=== PATIENT | female | born 1960 | race Caucasian/White ===

== ENCOUNTER 2025-09-12 14:45 | Outpatient (AMB) | payer MEDICARE, SELFPAY ==
--- NOTE | 2025-09-12 14:51 | A.OFFPC_ITS ---
Vital Signs 09/12/25 15:04 Height 5 ft 6 in Weight 254 lb 8 oz BMI 41.1 BP 110/74 Blood Pressure Location Rt brachial Position Sitting Respiration 16 Pulse 95 Pulse Source Pulse Oximeter Temp 97.1 F Temp Source Temporal Artery Scan Pulse Oximetry (%) 96 Oxygen Delivery Method Room Air Intake Visit Reasons: follow up-Adolfo pt Freelance Recruiter Required: No Accompanied by: Daughter Allergies No Known Allergies Allergy (Verified 09/12/25 15:05) Medication List - Last Reconciled 09/12/25 by Leigha Mata MD bupropion HCl XL 300 mg PO DAILY sertraline 150 mg PO DAILY Tobacco use date assessed: 09/12/25 Fall risk assessment: 2 + Falls in past year Last assessed Fall Risk: 09/12/25 Dental Screening Dental Screen Date: 09/12/25 Did you have a dental visit in the last 12 months?: Yes Did you have a dental problem in the last 6 months where you did not have access to dental care?: No Was dental information given to patient?: Patient has dentist HPI HPI Comments History of Present Illness Details The patient is a 64 year old female presenting to [facility] care and for management of multiple chronic conditions including memory loss, sleep apnea, and hearing issues. Mild Cognitive Impairment: The patient was previously diagnosed with mild cognitive impairment by neuropsychologist. Her daughter reports her forgetfulness has worsened, and the patient disagrees with the mild characterization. A prior MRI of the brain showed chronic microvascular changes but no evidence of amyloid-related changes (ARIA). Obstructive Sleep Apnea: The patient has a diagnosis of obstructive sleep apnea and was prescribed a CPAP machine, but she is non-adherent with treatment. She reports that her mouth opens during sleep, causing air to leak from the mask, which frightens her and causes her to remove it. She previously saw physicians at the [facility] but has not ordered new supplies from her [employer]. 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 Hickey, an ENT specialist. A comparison of her most recent MRI to the previous one showed no growth per ENT. The recommended follow-up is a repeat MRI in January of 2027 per ENT. Hearing Loss and Dysequilibrium: The patient has profound hearing loss in her left ear, described as pretty much gone. She also reports experiencing frequent falls and balance problems. She has a scheduled appointment with audiology to be fitted for hearing aids. Depression: The patient's PHQ-9 score is 7, indicating mild depression. She has not previously connected with a therapist, which was partly due to prior insurance issues after leaving her job. She reports taking sertraline 150mg daily and wellbutrin. Weight Management: The patient has a history of a Lap-Band procedure for weight management and expressed interest in a weight management consultation. She has a gym membership but has not been attending recently. [facility] Medical History (Updated 09/12/25 @ 15:55 by Leigha Mata MD) Morbid obesity Memory changes H/O Mohs micrographic surgery for skin cancer CHELA (obstructive sleep apnea) Colon polyp Depression with anxiety Mild cognitive impairment Subclinical hypothyroidism Surgical History (Updated 09/12/25 @ 14:21 by Leigha Mata MD) History of lobectomy of thyroid LAP-BAND surgery status History of colonoscopy (~03/23/19) Family History (Updated 09/12/25 @ 15:07 by Tete Welch CMA) Other Diabetes mellitus Primary hypertension Social History Housing: House Patient Tobacco Use Status: Never used Tobacco e-Cigarette/Vaping Use: Never Used Current occupational status: retired Questionnaire PHQ-9 Over the last 2 weeks, how often have you been bothered by any of the following problems? 1. Little interest or pleasure in doing things: several days 2. Feeling down, depressed, or hopeless: several days 3. Trouble falling or staying asleep, or sleeping too much: several days 4. Feeling tired or having little energy: several days 5. Poor appetite or overeating: not at all 6. Feeling bad about yourself - or that you are a failure or have let yourself or your family down: several days 7. Trouble concentrating on things, such as reading the newspaper or watching television: several days 8. Moving or speaking so slowly that other people could have noticed. Or the opposite - being so fidgety or restless that you have been moving around a lot more than usual: several days 9. Thoughts that you would be better off or of hurting yourself in some way: not at all Total score: 7 Depression Screening Interpretation: Positive Depression Screening Follow-up: Existing condition and In treatment Depression Screening Done: Yes 37662 - PHQ-9 Billing: Yes Source: Developed by Drs. Vijay Frausto, Meli Negrete, Gamaliel Marion and colleagues, with an educational theresa from [employer]. AUDIT C Alcohol Use Questionnaire (AUDIT-C) 1. How often do you have a drink containing alcohol?: Never 3. How often do you have six or more drinks on one occasion?: Never Total Score: 0 Review of Systems Narrative Review of Systems - ENT: Reports profound hearing loss in the left ear. - Musculoskeletal/Neurological: Reports poor balance and history of falls. - Psychiatric: Reports symptoms of depression. - Neurological: per hpi Physical exam (Primary Care) Vital Signs: Last Vital Signs Temp 97.1 F 09/12/25 15:04 Pulse 95 09/12/25 15:04 Resp 16 09/12/25 15:04 BP 110/74 09/12/25 15:04 Pulse Ox 96 09/12/25 15:04 Oxygen Delivery Method Room Air 09/12/25 15:04 BMI result Body Mass Index 41.1 Tobacco/Smoking Status: Tobacco use Status Tobacco use date assessed 09/12/25 09/12/25 14:53 Patient Tobacco Use Status Never used Tobacco 09/12/25 15:09 e-Cigarette/Vaping Use Never Used 09/12/25 15:09 PHQ-9: PHQ-9 Score PHQ-9: Total score 7 09/12/25 15:44 Depression Screening Interpretation: Positive Depression Screening Follow-up: Existing condition and In treatment Narrative Physical Exam - HEENT: External auditory canals and oropharynx are clear. -Cardiovascular: Regular rhythm with a soft murmur. Carotids are clear bilaterally. - Respiratory: Lungs are clear to auscultation bilaterally. Coding Level of Care Code Est Pt Level 5 (18512) Add On Problem Visit Only Diagnoses Mild cognitive impairment G31.84 CHELA (obstructive sleep apnea) G47.33 Depression with anxiety F41.8 Additional Codes PHQ-9 - 38494 - PHQ-9 Billing: Yes ([id number]) Time Spent (min) 44 Comment chart review, document prep, visit time, care coordination, ordering tests Assessment & Plan Assessment & Plan (1) Mild cognitive impairment: Code(s): G31.84 - Mild cognitive impairment of uncertain or unknown etiology Category: Medical (2) CHELA (obstructive sleep apnea): Code(s): G47.33 - Obstructive sleep apnea (adult) (pediatric) Category: Medical (3) Depression with anxiety: Code(s): F41.8 - Other specified anxiety disorders Category: Medical Plan Assessment and Plan 1. Mild Cognitive Impairment - The patient reports increased forgetfulness, which is more significant than her prior diagnosis of 'mild' cognitive impairment suggests. - A referral will be placed to neurology for a comprehensive evaluation.. - The plan includes optimizing management of potential confounding factors such as sleep apnea and hearing loss. 2. Obstructive Sleep Apnea - The patient is non-adherent with CPAP therapy due to mask intolerance. - She has been instructed to contact her DME provider, [employer], to obtain a full face mask. - She will verify her follow-up status with the [facility]; if there is no upcoming appointment or a long wait, a referral will be made to our in- house sleep clinic. - The importance of CPAP for brain oxygenation was emphasized. 3. Left Acoustic Neuroma and Hearing Loss - The 9 mm neuroma is stable per her ENT's last review, with surveillance MRI scheduled for 2026. - She will proceed with her scheduled audiology appointment for hearing aid evaluation. 4. Depression - With a PHQ-9 of 7, referrals will be sent to our navigation team to arrange appointments with psychiatry and therapy services covered by her insurance. - She was counseled on medication adherence 5. Obesity and Weight Management - A referral will be placed for a weight management consultation as requested by the patient. - It was clarified that this would be informational at this stage, and she would not be a candidate for bariatric surgery until other medical issues are better controlled. 6. Health Maintenance - Lab orders were placed to check thyroid function and vitamin levels, including B12. - The patient was encouraged to use a pill organizer to improve medication adherence. - refer for colonoscopy, history of polyp Plan - Refer to Neurology for evaluation of cognitive decline. - Refer to the navigation team to establish care with in-network Psychiatry and Therapy. - Patient to contact [facility] (DME supplier) to request a full face mask for CPAP machine to improve adherence. - Ordered labs including thyroid studies and vitamin levels. - Refer to GI for colonoscopy Patient Instructions - We are referring you to a neurologist for your memory concerns. - We are also sending referrals for you to see a psychiatrist and a therapist. - Please call your medical equipment company, [employer], and tell them you need a full face mask for your CPAP machine. - Find out if you have another appointment scheduled at the [facility] and send us a message through the patient portal to let us know. - Make sure to go to your already scheduled appointment to get fitted for hearing aids. - We will send a referral for a weight management consultation so you can get more information. - Please go to the lab to have your blood drawn. Orders: Orders Vitamin B12 Today E03.8 - Other specified hypothyroidism, G31.84 - Mild cognitive impairment of uncertain or unknown etiology Complete Blood Count Auto Diff Today E03.8 - Other specified hypothyroidism, G31.84 - Mild cognitive impairment of uncertain or unknown etiology Comprehensive Met. Panel Today E03.8 - Other specified hypothyroidism, G31.84 - Mild cognitive impairment of uncertain or unknown etiology TSH reflex Free T4 Today E03.8 - Other specified hypothyroidism, G31.84 - Mild cognitive impairment of uncertain or unknown etiology Vitamin D 25-OH Total Today E03.8 - Other specified hypothyroidism, G31.84 - Mild cognitive impairment of uncertain or unknown etiology LDL Cholesterol Direct Today E03.8 - Other specified hypothyroidism, G31.84 - Mild cognitive impairment of uncertain or unknown etiology Referrals Bariatric Surgery Referral E66.01 - Morbid (severe) obesity due to excess calories Neurology Referral G31.84 - Mild cognitive impairment of uncertain or unknown etiology, R41.3 - Other amnesia Gastroenterology Referral K63.5 - Polyp of colon Medications: New bupropion HCl XL 300 mg PO DAILY 90 tabs 3RF sertraline 150 mg (1.5 x 100 mg) PO DAILY 90 tabs 3RF
[2025-09-12 15:04] VITALS: BP 110/74; PULSE 95; RESP 16; TEMP 36.2; O2SAT 96; BMI 41.1
--- OUTSIDE RECORDS SUMMARY | 2025-09-12 19:41 | XMS_ITS | Patient Health Record ---
[facility] Address [address] [place] [address] Care Team Providers Care Blade Worker Name Role Phone AdolfoLeigha alegria Primary Care Provider Unavaila Hardeep Regalado Unavailable [phone] Reason For Referral No Information Social History Tobacco use other than smoking: Question Answer Notes Are you an other tobacco user? 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) Flat Foot, Congenital (754.61) Active confirmed Problem Pain in limb (98485553) Pain in Limb (729.5) Active confirmed Problem Calcaneal spur (86182115) Calcaneal spur (726.73) Active confirmed Problem Ingrowing nail (107714902) Ingrowing Nail (703.0) Active confirmed Plan Of Treatment No Information Insurance Providers Payer Name Payer Address Payer Phone Subscriber Number Group Number Insured Name Patient Relationship to Insured Coverage Start Date Coverage End Date [facility] [employer] [address] [place] [address] [id number] Sabine Freed Self - patient is the insured Medical (General) History Surgical History Surgery Date(Month/Year) lap band 2010 knee surgery, left 2010
--- OUTSIDE RECORDS SUMMARY | 2025-09-12 19:41 | XMS_ITS | Continuity of Care Document ---
Author Organization [place] - [facility], [facility] Address [address] [place] [address] Care Team Providers Care Nutrition Aides Teacher Name Role Phone RUSTY NOLAND Primary Care Provider Assessment Encounter Date Assessment Date Assessment LastModified by Organization Details LastModified Time 09/04/2025 09/04/2025 Assessment: - 9 mm acoustic neuroma, left side, stable in size over a year and a half of observation - Hearing loss bilaterally, left greater than right secondary to acoustic neuroma. - Occasional falls and unsteadiness. Plan: Today I spoke with the patient and her daughter at length. The left-sided acoustic neuroma is stable and benign, with no evidence of growth between April 2023 and January 2025. Observation is recommended, with a follow-up MRI scheduled for January 2027 to monitor for any changes. The patient is advised to answer calls from the imaging center to ensure timely scheduling. Regarding hearing loss, BiCross amplification technology is recommended. A hearing aid evaluation will be scheduled with an forestry foreman to discuss options, including a hearing aid for the right ear and a microphone/transm itter for the left ear to improve overall hearing functionality. For balance issues, the patient will be referred to [facility] for vestibular rehabilitation therapy. This therapy will include exercises to strengthen muscles, improve coordination, and enhance balance. The patient is encouraged to follow through with the referral and consider ongoing balance exercises or classes to maintain improvement. The patient was reassured that the acoustic neuroma is benign and slow-growing, with no immediate need for surgical intervention or radiation therapy. She was counseled on the importance of observation and maintaining regular follow-ups. Not available 09/04/2025 12:47:46 Plan of Treatment Reminders Order Date Submit Date Provider Last Modified By Organization Details Last Modified Time Details Appointments HUNTER Initial Fitting 2025 01:00P M COY TRIPATHI Not available Not available Not available Lab None recorded. Referral None recorded. Procedures None recorded. Surgeries None recorded. Imaging MRI, brain + internal auditory canal, w/wo contrast - MRI, BRAIN + INTERNAL AUDITORY CANAL, W/WO CONTRAST 2024 05/03/2 027 [email or web address] [facility] ([facility] [address], [place], [address], 09/04/2025 12:26:20 Medication Orders None recorded. Patient TargetsNo targets recorded. Patient Instructions Encounter Date Encounter Id Patient Instructions Last Modified By Organization Details Last Modified Time 09/04/2025 [id number] - Follow up with MRI in January 2027. - Answer calls from the imaging center to schedule the MRI. - Attend hearing aid evaluation with forestry foreman to discuss BiCross amplification technology. - Follow through with vestibular rehabilitation therapy referral and perform recommended exercises to improve balance. - Maintain regular follow-ups for observation of the acoustic neuroma. [email or web address] Not available 09/04/2025 12:18:31 Please note: Par ts of this encounter note have been generated by AI based on audio conversation. Patient consent was required prior to utilizing this technology. Content review was required prior to finalizing the note. [email or web address] Not available 09/04/2025 12:18:32 Reason for Referral None Reported. Results Created Date Observation Date Name Description Value Unit Range Abnormal Flag Note LastModifiedBy Organization Detail LastModifiedTime 09/04/20 25 audio gram No observ ation record ed. BARCODE Not Available 2024 13:12:27 Result Notes None recorded. Problems Name Problem SNOMED Code Status Onset Date Resolution Date Notes Provider Name and Address Organization Details Recorded Time Sensorine ural hearing loss of bilateral ears 028663293 Active 2022 Sensorine ural hearing loss, bilateral ; Note: Date Diagnosed : 03/09/2023 11:09 AM (H90.3) Not Available [employer] 02:55:45 Sensorine ural hearing loss of bilateral ears 666255234 Active 2024 STEFANY BORRERO MA, CCC-A [address], [place], [address] , [facility] - [facility] 09:22:47 Bilateral tinnitus 19574047869 02 Active 2024 KEYLA DILLON PA-C [address], [place], [address] , [facility] - [facility] 09:57:25 Benign neoplasm of cranial nerve 86592570 Active 2024 KEYLA DILLON PA-C [address], [place], [address] , [facility] - [facility] 12:28:37 General unsteadin ess 575969257 Active 2024 ELIER HENDRICKS MD [address] [place],[facility] [address], [place], [address] , [facility] - [facility] 12:12:59 Problem Notes None recorded. Procedures Surgical History Date Name Laterality Status Provider Name and Address Organization Details Recorded Time 02/23/2025 Comp Audio with Tymps - 99616 & 30393 completed STEFANY BORRERO MA, [facility] [address], [place], [address], [facility] - [facility] 02/23/2025 09:22:56 Imaging Results None recorded. Procedure Notes None recorded. Medical Equipment None Reported. Medications Name Sig Start Date Stop Date Status Note LastModified by Organization Details LastModified Time meloxicam 15 mg tablet 09/04 completed Medicati on ID: [id number] B rand Name: hamidaa obed Send Method: E-Prescr ibed Sub s Allowed: subs OK Medic ationGen ericName : meloxica m Not Available Not Available Not Available sertralin e 100 mg tablet TAKE 1 AND 1/2 TABLETS BY MOUTH DAILY active Not Available Not Available No t Available sertralin e 50 mg tablet TAKE 1 TABLET BY MOUTH DAILY 09/04 completed Not Available Not Available Not Available bupropion HCl XL 300 mg 24 hr tablet, extended release TAKE 1 TABLET BY MOUTH DAILY active Not Available Not Available No t Available bupropion HCl XL 150 mg 24 hr tablet, extended release 09/04 completed Medicati on ID: [id number] B rand Name: bupropio n HCl Send Method: E-Prescr ibed Sub s Allowed: subs OK Medic mary annGen ericName : bupropio n HCl Not Available Not Available Not Available Vitals Date Recorded Body height Body mass index (BMI) Body weight Provider Name and Address Organization Details Last Updated DateTime 09/04/2025 167.64 cm 40.4 kg/m2 573599.09 g Samaria Spicer [place] - [facility] 09/04/2025 11:36:54 Social History Question Answer Notes LastModified by Organizat ion Details LastModified Time Tobacco Smoking Status Never Smoker Samaria rodriguez [place] - [facility] 09/04/2025 11:37:08 What Type Of Glass Sander Belt Do You Use? None Information not available 09/04/2025 Do You Have Any Pets? Yes Information not available 09/04/2025 Are You Passively Exposed To Smoke? No Information not available 09/04/2025 Are There Any Smokers In Your House? No Information not available 09/04/2025 Sex: Unknown Functional Status Question Answer Note LastModified by Organization Details LastModified Time Do you use any illicit or recreational drugs? No Information not available 09/04/2025 Do you or have you ever used any other forms of tobacco or nicotine? No Information not available 09/04/2025 What is your level of alcohol consumption? None Information not available 09/04/2025 What type of noise exposure are you exposed to? noExposureToExcessiveNoise Infor mation not available 09/04/2025 Mental Status None recorded. Family History Nothing Reported. Medical History Condition Response Allergies/Hayfever N Heart Problems N Anxiety Y Tonsil Infections N Emphysema N Migraines N Thyroid Problems N Depression Y COPD N Developmental Delay N Glaucoma N Nasal or Sinus Problems N Anemia N Immune System Disorder N Anesthesia Complications N Heart Attack ([place]) N Other Skin Condition N Diabetes N Rhinitis N Bleeding Disorder N Food Allergy N Hearing Loss Y Arthritis Y Hyperlipidemia N Cancer N Stroke N Dementia N Nasal polyps N Asthma N Sleep Disorder Y High Cholesterol N GERD/Reflux N Liver Disease N Headaches N Fibromyalgia N Hypertension N Speech Delay N Kidney Disease N Gynecological HistoryNo gynecological history recorded. Obstetrics History GPAL:G 0 P 0 0 0 0 Past Encounters Encounter ID Performer Location Encounter Start Date Encounter Closed Date Diagnosis/Indication Diagnosis SNOMED-CT Code Diagnosis ICD10 Code Diagnosis IMO Codes Diagnosis Note [id number] ELIER HENDRICKS MD [facility] [address] [address] 09/04/2025 11:25:35 09/04/2025 12:26:19 Benign neoplasm of cranial nerve 99227084 D33.3 506588 Sensorineu ral hearing loss of bilateral ears 131677637 H90.3 74702027 Bilateral tinnitus 69748 04899 102 H93.13 539196 General unsteadiness 271 403302 R26.81 [id number] Health Concerns Section Related Observation LastModified by Organization Detai ls LastModified Time None Recorded Concern Status LastModified by Organization Details LastModified Time None Recorded Payers Encounter Date Sequence Insurance Name Policy Number Policy Perea Covered Member ID Perea Member ID Guarantor Name 09/04/[address] [place] [address] [id number] Sabine Greenberg [id number] Sabine Greenberg Notes Date Note Type Note Provider Name and Address Organization Details Recorded Time 09/04/2025 text/html 64-year-old female with memory loss and left-sided acoustic neuroma, originally diagnosed by Dr. Colon back in April 2023. This measured 8 x 5 x 4 mm. 6-month MRI scan was recommended but not carried out. MRI was ordered, but patient did not respond to scheduling communications from [facility]. She ended up getting a follow-up MRI scan on 02/07/2025 which showed the tumor measuring 9 mm in greatest dimension, likely overall unchanged based on slight differences in slice selection. Most recent audiogram on 02/23/2025 showed mild to moderate sensorineural hearing loss in the right ear and moderate to severe sensorineural hearing loss in the left ear. Amplification recommended, likely BiCROS technology. She has not yet pursued this. Patient also notes occasional unsteadiness on her feet. She has fallen several times. Her daughter attributes this to her trying to carry too much or do too many activities and wants. Patient does not have sensation of vertigo. She comes in today accompanied by her daughter. ELIER HENDRICKS MD [address] [place] [address], [address], [facility] - [facility] 09/04/2025 12:48:05 OBGyn Episode No OBEpisode recorded.
--- OUTSIDE RECORDS SUMMARY | 2025-09-12 19:41 | XMS_ITS | Data Portability ---
Author Organization [facility], [facility] Address [address] [place] [address] Care Team Providers Care Brass Wind Instrument Maker Name Role Phone RUSTY NOLAND Primary Care Provider Assessment No assessment recorded. Plan of Treatment Reminders Order Date Submit Date Provider Last Modified By Organization Details Last Modified Time Details Appointments None recorde d. Lab None recorde d. Referral None recorde d. Procedures None recorde d. Surgeries None recorde d. Imaging XR, knee, 4 or more view - rm 113 4v hood knees 025 01/17/20 [email or web address] [facility], [address] [facility] [address], [place], [address], 08:33:47 Medication Orders None recorde d. Patient TargetsNo targets recorded. Patient InstructionsNo instructions recorded. Reason for Referral None Reported. Results Created Date Observation Date Name Description Value Unit Range Abnormal Flag Note LastModifiedBy Organization Detail LastModifiedTime 01/17/2001/16/2025 XR, knee, 4 or more view http:/ [email or web address] ?Encry pted=s hAaTro YD8dLq bEUv6g %2BXZw aYqtaq 0bqfl% 2Fg9IQ a4ajBk vP9nXo QUaueC m3YtLR FvZlgJ JJ8mAn HZtai3 1z8879 AC0Kla n2BUaK uKiQtr MwF INTERFACE [facility] [address], [place], [address], 01/16/2025 15:46:01 01/17/20 25 01/16/2025 XR, knee, 4 or more view http:/ [email or web address] ?Encry pted=s hAVitoro YD8dLq bEUv6g %2BXZw aYqtaq 0bqfl% 2Fg9IQ a4ajBk vP9nXo QUaueC m3YtLR FvZlgJ JJ8mAn HZtai3 4r0034 AC0Kla n2BUaK uKiQtr MwF INTERFACE [facility] Office [address] [facility] [address], [place], [address], 01/16/2025 15:46:03 Result Notes Documentation Provider Name and Address Organization Details Recorded Time Xr, Knee, 4 Or More View : [email or web address] Encrypted=mbPtUjaBN6xGsmW Uv6g%0MGIdwOywme6wmca%2Fg 4CIi7dqFzkO5iQxVBtycGy8Kr ELEnRixLUE6gQkSNxly79b066 1IL0Ytto0ZWkIqJfQcoMbN Not Available [facility] 01/16/2025 15:46: 02 Xr, Knee, 4 Or More View : [email or web address] Encrypted=mtUgZfiRG7fDxwI Uv6g%4KHZblKqeux5rbfh%2Fg 8NCy1wxPabN5fGlSCarnRu3Zh EAIyWrwBXD7wCkAXinq02p504 3RY4Zfph3HMeMlQkZgbMtC Not Available [facility] 01/16/2025 15:46: 03 Problems Name Problem SNOMED Code Status Onset Date Resolution Date Notes Provider Name and Address Organization Details Recorded Time Left Achilles tendiniti s 056084134300 102 Active 2017 Problem Code: M76.62; Problem Code Type: ICD-10; Status: 'A'; Not Available [facility] 11:43:41 Problem Notes None recorded. Procedures Surgical History Date Name Laterality Status Provider Name and Address Organization Details Recorded Time Knee Kenalog 40 1cc Injection, Bilateral completed Sanjay Vides PA-C [address], [place], [address], [facility] 01/16/2025 16:35:19 Imaging Results None recorded. Procedure Notes None recorded. Medical Equipment None Reported. Allergies No known drug allergies Medications Name Sig Start Date Stop Date Status Note LastModified by Organization Details LastModified Time sertraline 100 mg tablet TAKE 1 TABLET BY MOUTH DAILY active Not Available Not Available No t Available sertraline 50 mg tablet TAKE 1 TABLET BY MOUTH DAILY active Not Available Not Available No t Available bupropion HCl XL 300 mg 24 hr tablet, extended release TAKE 1 TABLET BY MOUTH DAILY active Not Available Not Available No t Available oxycodone HCl-oxycodon e-ASA 1 every 4 - 6 hours as needed 01/16 completed Statu s: 'Curr ent'; Not Available Not Available Not Available Vitals Date Recorded Body height Body mass index (BMI) Body weight Provider Name and Address Organization Details Last Updated DateTime 01/16/2025 167.64 cm 29.9 kg/m2 34123.59 g Geronimozuhair Lei [facility] 01/16/2025 15:32:27 Social History None recorded. Functional Status None recorded. Mental Status None recorded. Family History Nothing Reported. Medical History No medical history recorded. Gynecological HistoryNo gynecological history recorded. Obstetrics History GPAL:G 0 P 0 0 0 0 Past Encounters Encounter ID Performer Location Encounter Start Date Encounter Closed Date Diagnosis/Indication Diagnosis SNOMED-CT Code Diagnosis ICD10 Code Diagnosis IMO Codes Diagnosis Note [id number] JULIAN[facility] [address] [address] 01/16/2025 15:17:25 01/29/2025 09:13:01 Primary gonarthrosis, bilateral 757205872 M17.0 [id number] Health Concerns Section Related Observation LastModified by Organization Detai ls LastModified Time None Recorded Concern Status LastModified by Organization Details LastModified Time None Recorded Advance Directives Directive None Recorded Payers Insurance Date Sequence Insurance Name Policy Number Policy Perea Covered Member ID Perea Member ID Guarantor Name 01/29/2025 1 [employer] MED[employer]AGE PLAN (MEDICARE REPLACEMENT HMO) [id number] Sabine Greenberg [id number] Sabine Greenberg Notes Date Note Type Note Provider Name and Address Organization Details Recorded Time 01/16/2025 text/html ROS as noted in the HPI I am seeing the patient today under the supervision of Dr. Foster who was available but who did not see the patient. HPI:Patient is a 64-year-old female who presents to the office today with complaint of bilateral knee pain. States that she has had bilateral knee pain for the last 2 months without any specific inciting events or injuries. She was previously seen in our office about 4 years ago and was diagnosed with bilateral knee osteoarthritis. At that time she received bilateral knee injections which seem to have worked extremely well for her. She does utilize Advil as needed for pain relief. Also utilizes topical Voltaren gel. More pain in the right knee than the left. Increased pain with ambulatory activities. Past family, medical, social history and review of systems has been reviewed, updated and is located in the patient s chart. Examination: Well-appearing 64-year-old female in no acute distress. She is alert and oriented x 3. Ambulates with a symmetric gait. Bilateral knees reveal no erythema, warmth, ecchymosis, swelling. Right knee has tenderness palpation over the lateral joint line. The left knee has tenderness over the medial joint line. Range of motion of the knee is from 0-120 degrees. Knees are fairly stable to valgus and varus stress testing. Knee strength 5/5 against resistance with flexion and extension. Negative Abe test bilaterally. Negative Margaret's maneuver bilaterally. Calves are soft and nontender. 4 views of the bilateral knees obtained and independently reviewed in the office today. Right knee has joint space narrowing of the lateral joint compartment with evidence of subchondral sclerosis and osteophyte formation. Severe degenerative changes of the patellofemoral joint. Left knee has medial joint space narrowing with uszq-dk-kukr articulation, subchondral sclerosis as well as osteophyte formation. Severe degenerative changes noted of the patellofemoral joint. No fracture bilaterally. Impression:Bi-latera l Knee osteoarthritis Plan:We discussed the role of conservative management including medications, physical therapy, injection and bracing. At this point the patient was to proceed with injection. Please see procedure note. She will continue with activity modification as needed. Will continue with oral medications for pain relief. Follow-up as needed. All patient questions and concerns answered today. Sanjay Vides PA-C [address], [place], [address], [facility] [place] 01/16/2025 16:35:34 OBGyn Episode No OBEpisode recorded.
--- OUTSIDE RECORDS SUMMARY | 2025-09-12 19:41 | XMS_ITS | Data Portability ---
Author Organization [place] [facility], [facility] Address [address] [place] [address] Care Team Providers Care Cloth Bin Packer Name Role Phone RUSTY NOLAND Primary Care Provider Assessment Encounter Date Assessment Date Assessment LastModified by Organization Details LastModified Time 02/23/2025 02/23/2025 64-year-old female with memory loss and left-sided CPA retrocochlear pathology presents with daughter for reevaluation of hearing. She reports gradually worsening left-sided hearing loss. Tinnitus is stable. No vertigo. TMs and EACs are normal to inspection. Audiometric testing demonstrates neurosensory hearing loss with excellent word recognition in the right ear. Left ear with mild sloping to profound neurosensory loss with poor word recognition, at 24%. Tympanometry is normal. Patient is medically cleared for amplification, and may benefit from BiCROS technology. Recommend evaluation with Dr. Hendricks in 6 months. 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 01/2025: MRI of the IACs showed 9 x 5 x 5 mm enhancing mass within the left internal auditory canal. This is probably similar to prior study given slight differences in slice selection. [email or web address] Not available 02/23/2025 12:27:10 09/04/2025 09/04/2025 Assessment: - 9 mm acoustic [...] aid evaluation will be scheduled with an supervisor wall mirror department to discuss options, including a hearing aid for the right ear and a microphone/transm itter for the left ear to improve overall hearing functionality. For balance issues, the patient will be referred to [facility] for vestibular rehabilitation therapy. This therapy [...] importance of observation and maintaining regular follow-ups. [email or web address] Not available 09/04/2025 12:47:46 Plan of Treatment Reminders Order Date Submit Date Provider Last Modified By Organization Details Last Modified Time Details Appointments HUNTER Initial Fitting 2025 01:00P COY BOWENS Not available Not available Not available Lab None recorded. Referral None recorded. Procedures None recorded. Surgeries None recorded. Imaging MRI, brain + internal auditory canal, w/wo contrast - MRI, BRAIN + INTERNAL AUDITORY CANAL, W/WO CONTRAST 2024 0503/ 027 [email or web address] 18 [facility] ([facility] [address] [place], [address], 09/04/2025 12:26:20 Medication Orders None recorded. Patient TargetsNo targets recorded. Patient Instructions Encounter Date Encounter Id Patient Instructions Last Modified By Organization Details Last Modified Time 09/04/2025 [id number] - Follow up with MRI in January 2027. - Answer calls from the imaging center to schedule the MRI. - Attend hearing aid evaluation with supervisor wall mirror department to discuss BiCross amplification technology. - Follow through with vestibular rehabilitation therapy referral and perform recommended exercises to improve balance. - Maintain regular follow-ups for observation of the acoustic neuroma. [email or web address] Not available 09/04/2025 12:18:31 Please note: Par ts of this encounter note have been generated by AI based on audio conversation. Patient consent was required prior to utilizing this technology. Content review was required prior to finalizing the note. [email or web address] Not available 09/04/2025 12:18:32 Reason for Referral None Reported. Results Created Date Observation Date Name Description Value Unit Range Abnormal Flag Note LastModifiedBy Organization Detail LastModifiedTime 02/24/2002/07/2025 MRI, brain + inter nal audit ory canal , w/wo contr ast No observ ation record ed. [email or web address] Not Available 01/27 10:53:13 02/24/20 audio gram No observ ation record ed. BARCODE Not Available 2024 13:34:46 09/04/20 audio gram No observ ation record ed. BARCODE Not Available 2024 13:12:27 Result Notes None recorded. Problems Name Problem SNOMED Code Status Onset Date Resolution Date Notes Provider Name and Address Organization Details Recorded Time Sensorine ural hearing loss of bilateral ears 731486794 Active 2022 Sensorine ural hearing loss, bilateral ; Note: Date Diagnosed : 03/09/2023 11:09 AM (H90.3) Not Available [facility] 4 02:55:45 Sensorine ural hearing loss of bilateral ears 104728926 Active 2024 STEFANY BORRERO MA, CCC-A [address] [facility] [address], [place], [address] , [place] - [facility] 5 09:22:47 Bilateral tinnitus 33595021403 02 Active 2024 KEYLA DILLON PA-C [address] [facility] [address], [place], [address] , [facility] - [facility] [place] 5 09:57:25 Benign neoplasm of cranial nerve 88246561 Active 2024 KEYLA DILLON PA-C [address] [facility], [place], [address] , [facility] - [facility] [place] 5 12:28:37 General unsteadin ess 090323175 Active 2024 ELIER HENDRICKS MD [address] [facility],[address], [place], [address] , [place] - [facility] 12:12:59 Problem Notes None recorded. Procedures Surgical History Date Name Laterality Status Provider Name and Address Organization Details Recorded Time 02/23/2025 Comp Audio with Tymps - 63733 & 39535 completed STEFANY BORRERO [place], CCC-A [address] [facility] [address], [place], [address], [place] - [facility] 02/23/2025 09:22:56 Imaging Results None recorded. Procedure Notes None recorded. Medical Equipment None Reported. Medications Name Sig Start Date Stop Date Status Note LastModified by Organization Details LastModified Time meloxicam 15 mg tablet 09/04 completed Medicati on ID: [id number] B rand Name: meloxica m Send Method: E-Prescr ibed Sub s Allowed: [...] extended release 09/04 completed Medicati on ID: [id number] B rand Name: bupropio n HCl Send Method: E-Prescr ibed Sub s Allowed: subs OK Medic ationGen ericName : bupropio n HCl Not Available Not Available Not Available Vitals Date Recorded Body height Body mass index (BMI) Body weight Provider Name and Address Organization Details Last Updated DateTime 02/23/2025 167.64 cm 37.1 kg/m2 486013.25 g Samaria Spicer [place] - [facility] 02/23/2025 09:29:45 Date Recorded Body height Body mass index (BMI) Body weight Provider Name and Address Organization Details Last Updated DateTime 09/04/2025 167.64 cm 40.4 kg/m2 037582.09 g Samaria Spicer [place] - [facility] 09/04/2025 11:36:54 Social History Question Answer Notes LastModified by Organizat ion Details LastModified Time Tobacco Smoking Status Never Smoker Samaria rodriguez [place] - [facility] 09/04/2025 11:37:08 What Type Of Station Supervisor Do You Use? None Information not available [...] Emphysema N Migraines N Thyroid Problems N COPD N Depression Y Developmental Delay N Glaucoma N Nasal or Sinus Problems N Anemia N Immune System Disorder N Anesthesia Complications N Heart Attack (MS) N Other Skin Condition N Diabetes N [...] ICD10 Code Diagnosis IMO Codes Diagnosis Note [id number] KEYLA DILLON PA-C [facility] [address] [address] 02/23/2025 08:43:18 02/23/2025 09:56:30 Sensorineural hearing loss of bilateral ears 390343622 H90.3 84169526 Audiologic al evaluation results: Right ear: Mild-moder ate SNHL with excellent word recognitio n. Left ear: Mild sloping to profound SNHL with poor word recognitio n. Tympanomet ry: Right Ear:Type A Left Ear:Type A Bilateral tinnitus 06940 08777 102 H93.13 250743 Benign marcin plasm of cranial nerve 07176078 D33.3 082006 [id number] ELIER HENDRICKS MD [facility] [address] [address] 09/04/2025 11:25:35 09/04/2025 12:26:19 Benign neoplasm of cranial nerve 01954084 D33.3 589637 Sensorineu ral hearing loss of bilateral ears 979072687 H90.3 10918972 Bilateral tinnitus 78620 10317 102 H93.13 917932 General unsteadiness 271 033316 R26.81 16959900 Health Concerns Section Related Observation LastModified by Organization Detai ls LastModified Time None Recorded Concern Status LastModified by Organization Details LastModified Time None Recorded Advance Directives Directive None Recorded Payers Insurance Date Sequence Insurance Name Policy Number Policy Perea Covered Member ID Perea Member ID Guarantor Name 09/04/2025 1 [facility] ([facility] Sabine Siddiqui Yari [id number] Sabine Siddiqui Yari 09/04/2025 1 [facility] [id number] Sabine A Yari [id number] Sabine Siddiqui Yari Notes Date Note Type Note Provider Name and Address Organization Details Recorded Time 02/23/2025 text/html ROS as noted in the HPI 64-year-old female with memory loss and left-sided CPA retrocochlear pathology presents for reevaluation of hearing. She reports gradually worsening left-sided hearing loss. Denies changes to bilateral tinnitus or development of vertigo. She currently does not wear amplification. 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 2024: MRI of the IACs. There is a 9 x 5 x 5 mm enhancing mass within the left internal auditory canal. This is probably similar to prior study given slight differences in slice selection. ECTOR LOWE MD [address] [facility],[address] [address] [address], [place], [address], [place] - [facility] [place] 02/23/2025 12:36:45 09/04/2025 text/html 64-year-old female with memory loss and left-sided acoustic neuroma, originally diagnosed by Dr. Colon back in April 2023. This measured 8 x 5 x 4 mm. 6-month MRI scan was recommended but not carried out. MRI was ordered, but patient did not respond to scheduling communications from [facility]. She ended up getting a follow-up [...] accompanied by her daughter. ELIER HENDRICKS MD [address] [facility] [address], [place], [address], [facility] - [facility] 09/04/2025 12:48:05 OBGyn Episode No OBEpisode recorded.
== END 2025-09-12 16:09 | disposition home or self-care (01) ==
LOC: HO.HMCHD 14:46
PROVIDERS: PCP Internal Medicine; Visit Provider Internal Medicine
DX: G31.84 Mild cognitive impairment of uncertain or unknown etiology (principal); G47.33 Obstructive sleep apnea (adult) (pediatric); F41.8 Other specified anxiety disorders

== ENCOUNTER 2025-09-12 14:45 | Outpatient (REF) | payer MEDICARE, SELFPAY ==
[2025-09-12 16:33] LABS: MANUAL DIFF FLAG NO
[2025-09-12 17:16] LABS: Hematocrit 45.4 % (37.0-47.0); Hemoglobin 15.3 g/dl (12.0-16.0); Imm Gran Abs Auto 0.02 X10*3/uL (0.00-0.03); Imm Gran Pct Auto 0.3 % (0.0-0.4); Lymphocytes Absolute Auto 2.0 X10*3/uL (1.2-4.9); Mean Corpuscular HGB Conc 33.7 g/dl (31.0-35.0); Mean Corpuscular Hemoglobin 28.5 pg (27.0-33.0); Mean Corpuscular Volume 84.7 fL (80.0-98.0); NRBC Abs Auto 0.000 X10*3/uL (0.0-0.012); NRBC Pct Auto 0.0 /100WBC (0.0-0.2); Platelet Count 208 X10*3/uL (160-400); Red Blood Count 5.36 X10*6/uL (4.20-5.50); White Blood Count 5.8 X10*3/uL (4.8-10.8)
[2025-09-12 18:05] LABS: Alanine Aminotransferase 12 U/L (0-31); Albumin Level 4.4 g/dL (3.5-5.0); Alkaline Phosphatase 138 U/L (39-117); Anion Gap 14 (12-20); Aspartate Amino Transferase 18 U/L (5-31); Blood Urea Nitrogen 19 mg/dL (9-16); Calcium 8.9 mg/dL (8.4-10.2); Carbon Dioxide 23 mmol/L (22-29); Chloride 106 mmol/L (96-108); Estimated Glomerular Filt Rate 59; Potassium 4.3 mmol/L (3.3-5.1); Sodium 139 mmol/L (135-145); Total Protein 7.0 g/dL (6.5-8.0)
[2025-09-12 18:26] LABS: Vitamin B12 790 pg/mL (200-900)
== END 2025-09-12 14:46 | disposition home or self-care (01) ==
LOC: HO.LAB 14:45
PROVIDERS: PCP Internal Medicine; Visit Provider Internal Medicine
DX: E03.8 Other specified hypothyroidism (principal); G31.84 Mild cognitive impairment of uncertain or unknown etiology; G47.33 Obstructive sleep apnea (adult) (pediatric); F41.8 Other specified anxiety disorders; Z79.899 Other long term (current) drug therapy
CPT/HCPCS: 36415; 80053; 82306; 82607; 83721; 84443; 85025; 96127; 99212